=== PATIENT | male | born 1980 | race Hispanic/Latino ===

== ENCOUNTER 2017-10-19 13:24 | Emergency (ER) | payer OTHER ==
[2017-10-19 14:40] VITALS: RESP 16
--- NOTE | 2017-10-19 14:52 | ED PDOC ---
HPI: Chest Pain Time Seen by Provider: 10/19/17 14:27 Chief Complaint (Nursing): Palpitations Chief Complaint (Provider): Palpitations History Per: Patient History/Exam Limitations: no limitations Onset/Duration Of Symptoms: Mins (x15 RESIDENTIAL CAREGIVER) Current Symptoms Are (Timing): Better Quality: Tightness Associated Symptoms: Other (dizziness) Additional Complaint(s): Warren Farias is a 37 year old male, with no significant past medical history , who presents to the emergency department for a sudden episode of chest tightness, rapid heart rate and dizziness onset x15 min RESIDENTIAL CAREGIVER. Patient has a heart monitor and as he was walking home he noticed his heart rate was in the 120s and it went as high as 160s. Patient's blood pressure was in the 140s systolic. Patient states chest pain has improved and doesn't feel as dizzy but still has a minor discomfort to his chest. He denies any fever, chills, vomiting , shortness of breath, numbness or tingling, weakness, headache or recent travel. No further medical complaints. PMD: yonathan irene Past Medical History Reviewed: Historical Data, Nursing Documentation, Vital Signs Vital Signs: Last Vital Signs Temp 98.6 F 10/19/17 17:19 Pulse 82 10/19/17 17:19 Resp 16 10/19/17 17:19 BP 126/87 10/19/17 17:19 Pulse Ox 98 10/19/17 17:19 - Medical History PMH: Hypercholesterolemia - Family History Family History: States: CAD (grandfather), Hypertension - Social History Ex-Smoker (has not smoked in the last 12 months): Yes Alcohol: Occasional Drugs: Denies - Allergies Allergies/Adverse Reactions: Allergies Allergy/AdvReac Type Severity Reaction Status Date / Time No Known Allergies Allergy Verified 10/19/17 13:39 Review of Systems ROS Statement: Except As Marked, All Systems Reviewed And Found Negative Constitutional: Negative for: Fever, Chills Cardiovascular: Positive for: Chest Pain (chest tightness) Respiratory: Negative for: Shortness of Breath Gastrointestinal: Negative for: Vomiting Neurological: Positive for: Dizziness. Negative for: Weakness, Numbness, Headache Physical Exam - Reviewed Nursing Documentation Reviewed: Yes Vital Signs Reviewed: Yes - Physical Exam Appears: Positive for: Non-toxic, No Acute Distress Head Exam: Positive for: ATRAUMATIC, NORMAL INSPECTION, NORMOCEPHALIC Skin: Positive for: Normal Color, Warm, Dry Eye Exam: Positive for: Normal appearance, EOMI, PERRL ENT: Positive for: Normal ENT Inspection Neck: Positive for: Painless ROM, Supple Cardiovascular/Chest: Positive for: Tachycardia (slightly at 111 on monitor) Respiratory: Positive for: Normal Breath Sounds. Negative for: Respiratory Distress Gastrointestinal/Abdominal: Positive for: Normal Exam, Soft. Negative for: Tenderness Back: Positive for: Normal Inspection Extremity: Positive for: Normal ROM (upper and lower extremities). Negative for : Tenderness, Deformity, Swelling Neurologic/Psych: Positive for: Alert, Oriented. Negative for: Motor/Sensory Deficits - Laboratory Results Result Diagrams: 10/19/17 15:04 10/19/17 15:04 - ECG O2 Sat by Pulse Oximetry: 96 (RA) Pulse Ox Interpretation: Normal Medical Decision Making Medical Decision Making: Time: 14:27 Initial Impression: Initial Plan: --CMP --Troponin I --CBC w/ differential --Chest portable [RAD] --Reevaluation EKG: Sinus tachy @ 112 bpm. Blood pressure 144/90. -No PE risk factors, no recent travel. 15:16 CXR FINDINGS: LUNGS: No active pulmonary disease. PLEURA: No significant pleural effusion identified, no pneumothorax apparent. CARDIOVASCULAR: Normal. OSSEOUS STRUCTURES: No significant abnormalities. VISUALIZED UPPER ABDOMEN: Normal. OTHER FINDINGS: None. IMPRESSION: No active disease. 16:57 -Labs reviewed and showed no clinical significant abnormalities. 17:32 -Repeat EKG unchanged from previous. Incomplete RBBB. rate of 81bpm ----- Scribe Attestation: Documented by Franky Rogel, acting as a scribe for Shawanda Blount MD. Provider Scribe Attestation: All medical record entries made by the Scribe were at my direction and personally dictated by me. I have reviewed the chart and agree that the record accurately reflects my personal performance of the history, physical exam, medical decision making, and the department course for this patient. I have also personally directed, reviewed, and agree with the discharge instructions and disposition. Disposition - Clinical Impression Clinical Impression: Palpitations - Disposition Referrals: Fermin Bronw MD [Staff Provider] - Condition: IMPROVED Additional Instructions: follow up with stock patch sawyer this week for holter monitor and further eval. return to the ED with any worsening or concerning symptoms Instructions: Palpitations (DC) Forms: [employer] (Maltese)
--- NOTE | 2017-10-19 15:18 | RAD ---
Date of service: 10/19/2017 HISTORY: chest pain COMPARISON: No prior. FINDINGS: LUNGS: No active pulmonary disease. PLEURA: No significant pleural effusion identified, no pneumothorax apparent. CARDIOVASCULAR: Normal. OSSEOUS STRUCTURES: No significant abnormalities. VISUALIZED UPPER ABDOMEN: Normal. OTHER FINDINGS: None. IMPRESSION: No active disease.
[2017-10-19 15:19] LABS: ALB/GLOB RATIO 1.4 (1.0-2.1); ALBUMIN 4.8 g/dL (3.5-5.0); ALT/SGPT 30 U/L (21-72); AST/SGOT 26 U/L (17-59); BLOOD UREA NITROGEN 11 mg/dl (9-20); CALCIUM 9.7 mg/dL (8.4-10.2); GFR AFRICAN-AMERICAN > 60; GFR NON-AFRICAN AMERICAN > 60
[2017-10-19 15:29] LABS: BASO % 0.8 % (0.0-2.0); EOS % 0.6 % (0.0-4.0); HEMOGLOBIN 16.5 g/dL (12.0-18.0); LYMPH # 1.1 K/uL (1.0-4.3); LYMPH % 18.3 % (20.0-40.0); MEAN CORPUSCULAR HEMOGLOBIN 30.7 pg (27.0-31.0); MEAN CORPUSCULAR HGB CONC 35.3 g/dL (33.0-37.0); MEAN PLATELET VOLUME 8.9 fl (7.2-11.7); MONO # 0.5 K/uL (0.0-0.8); MONO % 7.9 % (0.0-10.0); NEUT # 4.4 K/uL (1.8-7.0); NEUT % 72.4 % (50.0-75.0); NRBC % 0.4 % (0.0-0.0); RBC 5.35 Mil/uL (4.40-5.90); WHITE BLOOD COUNT 6.1 K/uL (4.8-10.8)
[2017-10-19 17:20] VITALS: BP 126/87; PULSE 82; TEMP 98.6
[2017-10-19 17:37] VITALS: O2SAT 96
== END 2017-10-19 18:20 | disposition home or self-care (01) ==
LOC: H.ER 13:24
DX: R00.2 Palpitations (principal); E78.00 Pure hypercholesterolemia, unspecified

== ENCOUNTER 2018-08-12 09:31 | Emergency (ER) | payer OTHER ==
[2018-08-12 09:42] VITALS: RESP 16; TEMP 98.5
[2018-08-12] MEDS ORDERED: Sodium Chloride 0.9% 1,000 ML IV STA (10:12)
--- NOTE | 2018-08-12 10:27 | ED PDOC ---
HPI: Chest Pain Time Seen by Provider: 08/12/18 09:48 Chief Complaint (Nursing): Chest Pain Chief Complaint (Provider): chest pain History Per: Patient History/Exam Limitations: no limitations Onset/Duration Of Symptoms: Days (yesterday) Additional Complaint(s): Pt. went for a walk yesterday and developed chest pain left side. He went to sleep with it and woke up with the pain. Also got palpitations today so came to the ER. States palpitations have been present for a while with dizziness /vertigo that he had previously. No dizziness currently. Has an appt with a construction and maintenance inspector on . Has seen them prior for it as well. No long distance travel, weakness, dyspnea, abd pain, nausea, leg pain, hormone use, drugs, etoh. Has been taking and took today 81mg aspirin. Past Medical History Reviewed: Nursing Documentation, Vital Signs Vital Signs: Last Vital Signs Temp 98.5 F 08/12/18 09:41 Pulse 70 08/12/18 09:41 Resp 16 08/12/18 09:41 BP 131/91 H 08/12/18 09:41 Pulse Ox 99 08/12/18 09:41 Primary Care Provider: FAMILY PROVIDER,NO - Medical History PMH: Hypercholesterolemia - Surgical History Surgical History: No Surg Hx - Family History Family History: States: CAD (grandfather), Hypertension - Allergies Allergies/Adverse Reactions: Allergies Allergy/AdvReac Type Severity Reaction Status Date / Time No Known Allergies Allergy Verified 10/19/17 13:39 Review of Systems ROS Statement: Except As Marked, All Systems Reviewed And Found Negative Cardiovascular: Positive for: Chest Pain, Palpitations Physical Exam - Reviewed Nursing Documentation Reviewed: Yes Vital Signs Reviewed: Yes - Physical Exam Appears: Positive for: Non-toxic, No Acute Distress Head Exam: Positive for: ATRAUMATIC, NORMAL INSPECTION, NORMOCEPHALIC Skin: Positive for: Normal Color, Warm, DRY Eye Exam: Positive for: EOMI, Normal appearance, PERRL ENT: Positive for: Normal ENT Inspection Neck: Positive for: Normal, Painless ROM Cardiovascular/Chest: Positive for: Regular Rate, Rhythm, Chest Non Tender. Negative for: Edema Respiratory: Positive for: CNT, Normal Breath Sounds Gastrointestinal/Abdominal: Positive for: Normal Exam, Soft. Negative for: Tenderness Back: Positive for: Normal Inspection. Negative for: L CVA Tenderness, R CVA Tenderness Extremity: Positive for: Normal ROM. Negative for: Tenderness, Pedal Edema Neurological/Psych: Positive for: Awake, Alert, Normal Tone - Laboratory Results Result Diagrams: 08/12/18 10:21 08/12/18 10:21 Interpretation Of Abn Labs: no acute - ECG ECG: Positive for: Interpreted By Me, Viewed By Me ECG Rhythm: Positive for: Normal QRS, Normal ST Segment, Sinus Rhythm O2 Sat by Pulse Oximetry: 99 Pulse Ox Interpretation: Normal - Radiology X-Ray: Interpreted by Me, Viewed By Me X-Ray Interpretation: No Acute Disease - Progress ED Course And Treament: 1251: Spoke with pt. 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 States can dc as no acute findings found. Pt. to fu with them tomorrow. Spoke with pt. who is feeling better. AAOx3. Agrees with plan. Disposition - Clinical Impression Clinical Impression: Chest pain - Patient ED Disposition Is Patient to be Admitted: No Counseled Patient/Family Regarding: Studies Performed, Diagnosis, Need For Followup - Disposition Referrals: [facility] [Outside] - 08/13/18 Disposition: Routine/Home Disposition Time: 12:54 Condition: STABLE Additional Instructions: Return if not better in 3 days. If pain, weakness, shortness of breath, dizziness, or not feeling well, come back right away. See your construction and maintenance inspector tomorrow without fail. Instructions: Chest Pain Forms: [facility] [email or web address] (Spanish), [facility] ED School/Work Excuse
[2018-08-12 10:32] LABS: BASO % 0.7 % (0.0-2.0); EOS % 0.9 % (0.0-4.0); HEMOGLOBIN 16.5 g/dL (12.0-18.0); LYMPH # 1.2 K/uL (1.0-4.3); LYMPH % 31.9 % (20.0-40.0); MEAN CELL VOLUME 87.1 fl (80.0-94.0); MEAN CORPUSCULAR HEMOGLOBIN 30.8 pg (27.0-31.0); MEAN CORPUSCULAR HGB CONC 35.3 g/dL (33.0-37.0); MONO # 0.3 K/uL (0.0-0.8); NEUT # 2.3 K/uL (1.8-7.0); NEUT % 59.5 % (50.0-75.0); NRBC % 0.1 % (0.0-0.0); RBC 5.38 Mil/uL (4.40-5.90); RED CELL DISTRIBUTION WIDTH 12.8 % (11.5-14.5); WHITE BLOOD COUNT 3.8 K/uL (4.8-10.8)
[2018-08-12 10:45] LABS: ALB/GLOB RATIO 1.4 (1.0-2.1); ALBUMIN 4.7 g/dL (3.5-5.0); ALT/SGPT 23 U/L (21-72); AST/SGOT 21 U/L (17-59); BLOOD UREA NITROGEN 16 mg/dl (9-20); CALCIUM 9.7 mg/dL (8.4-10.2); GFR NON-AFRICAN AMERICAN > 60
[2018-08-12 11:47] LABS: INR 1.1; PROTHROMBIN TIME 12.5 Seconds (9.8-13.1)
[2018-08-12 11:48] LABS: PARTIAL THROMBOPLASTIN TIME 32.6 Seconds (25.6-37.1)
[2018-08-12 13:18] VITALS: BP 132/88; PULSE 78; O2SAT 100
--- NOTE | 2018-08-12 17:29 | RAD ---
Date of service: 08/12/2018 HISTORY: chest pain COMPARISON: Frontal chest radiograph 10/18/2017. TECHNIQUE: 1 view obtained. FINDINGS: LUNGS: No active pulmonary disease. PLEURA: No significant pleural effusion identified, no pneumothorax apparent. CARDIOVASCULAR: No aortic atherosclerotic calcification present. Normal cardiac size. No pulmonary vascular congestion. OSSEOUS STRUCTURES: No significant abnormalities. VISUALIZED UPPER ABDOMEN: Normal. OTHER FINDINGS: None. IMPRESSION: No interval acute cardiopulmonary disease appreciated.
== END 2018-08-12 13:08 | disposition home or self-care (01) ==
LOC: H.ER 09:31
DX: R07.9 Chest pain, unspecified (principal)
CPT/HCPCS: 71045; 80053; 84484; 85025; 85610; 85730; 96360; 99284; J7030